=== PATIENT | male | born 1990 | race Caucasian/White ===

== ENCOUNTER 2018-01-22 23:20 | Emergency (ER) | payer OTHER ==
[~2018-01-22] VITALS: Ht 180.3 cm; Wt 84.0 kg
[2018-01-23] MEDS ORDERED: PERCOCET 5/325M1 TAB PO (03:05)
[2018-01-23 03:22] VITALS: BP 120/72
== END 2018-01-23 03:23 | disposition home or self-care (01) | DRG 563 ==
LOC: ED 23:20
DX: S92.001A Unspecified fracture of right calcaneus, initial encounter for closed fracture (principal); X50.1XXA Overexertion from prolonged static or awkward postures, initial encounter; Y93.89 Activity, other specified; Y92.833 Campsite as the place of occurrence of the external cause